=== PATIENT | male | born 1965 | race Two or more races ===

== ENCOUNTER 2020-06-03 12:40 | Outpatient (REF) | payer OTHER, SELFPAY ==
[2020-06-03 16:39] LABS: SARS COV2 PCR INHOUSE NEGATIVE (Negative)
== END 2020-06-03 12:41 | disposition home or self-care (01) ==
LOC: HO.LAB 12:40
PROVIDERS: Visit Provider Internal Medicine
DX: Z20.822 Contact with and (suspected) exposure to COVID-19 (principal)
CPT/HCPCS: C9803; U0003

== ENCOUNTER 2020-06-07 09:42 | Outpatient (REF) | payer OTHER, SELFPAY ==
[2020-06-07 12:54] LABS: SARS COV2 PCR INHOUSE NEGATIVE (Negative)
== END 2020-06-07 09:43 | disposition home or self-care (01) ==
LOC: HO.LAB 09:42
PROVIDERS: Visit Provider Internal Medicine
DX: Z20.822 Contact with and (suspected) exposure to COVID-19 (principal)
CPT/HCPCS: C9803; U0003